=== PATIENT | female | born 1930 | race Caucasian/White ===

== ENCOUNTER 2016-12-07 11:54 | Inpatient (IN) | payer OTHER ==
[~2016-12-07] VITALS: Ht 162.6 cm; Wt 71.6 kg
[2016-12-07] MEDS ORDERED: LOVA10TA PO (12:20)
[2016-12-07] MEDS ORDERED: SODIUM CHLORIDE FLUSH 10ML SYR IVF ONE (13:00)
[2016-12-07 13:01] LABS: HEMOGLOBIN 13.3 g/dL (11.7-16.4); WHITE BLOOD COUNT 6.8 x10^3/uL (3.4-10)
[2016-12-07 13:14] LABS: ASPARTATE AMINO TRANSFERASE 15 U/L (15-37); BLOOD UREA NITROGEN 8 mg/dL (7-18)
[2016-12-07 13:19] LABS: IS PT STATUS REG ER OR PRE ER? YES
[2016-12-07] MEDS: SODIUM CHLORIDE 0.9% 1,000 ML IV SCH (14:00)
[2016-12-07] MEDS ORDERED: CEFTRIAXONE PMX 1GM/50ML 50 ML IV ONE (14:30)
[2016-12-07] MEDS ORDERED: MECLIZINE 12.5 MG TABLET PO PRN (15:00)
[2016-12-07] MEDS ORDERED: POLYETHYLENE GLYCOL 17 GM PACKET PO PRN (15:00)
[2016-12-07] MEDS ORDERED: DOCUSATE 100 MG CAPSULE PO PRN (15:00)
[2016-12-07] MEDS ORDERED: CEFTRIAXONE PMX 1GM/50ML 50 ML IV SCH (15:00)
[2016-12-07] MEDS ORDERED: ENALAPRILAT 1.25 MG/ML, 2ML IVPush PRN (15:00)
[2016-12-07] MEDS ORDERED: BISACODYL 10 MG SUPP PR PRN (15:00)
[2016-12-07 16:11] VITALS: BP 172/74
[2016-12-07] MEDS: CEFTRIAXONE PMX 1GM/50ML 50 ML IV SCH (16:37)
[2016-12-07] MEDS: ENOXAPARIN 40 MG/0.4 ML SQ SCH (16:38)
[2016-12-07 21:16] VITALS: BP 161/76
[2016-12-07] MEDS: SIMVASTATIN 5 MG TABLET PO SCH (21:21)
[2016-12-08 01:27] VITALS: BP 108/63
[2016-12-08 05:13] LABS: HEMATOCRIT 37.7 % (34.6-47.8); HEMOGLOBIN 12.2 g/dL (11.7-16.4); WHITE BLOOD COUNT 6.7 x10^3/uL (3.4-10)
[2016-12-08 05:47] LABS: ASPARTATE AMINO TRANSFERASE 11 U/L (15-37); BLOOD UREA NITROGEN 12 mg/dL (7-18)
[2016-12-08 07:37] VITALS: BP 150/78
[2016-12-08] MEDS: SODIUM CHLORIDE 0.9% 1,000 ML IV SCH ×2 (09:12→18:00)
[2016-12-08 14:50] VITALS: BP 165/87
[2016-12-08] MEDS: ENOXAPARIN 40 MG/0.4 ML SQ SCH (17:00)
[2016-12-08] MEDS: CEFTRIAXONE PMX 1GM/50ML 50 ML IV SCH (17:00)
[2016-12-08 19:50] VITALS: BP 151/99
[2016-12-08] MEDS: SIMVASTATIN 5 MG TABLET PO SCH (20:05)
[2016-12-09 01:41] VITALS: BP 147/71
[2016-12-09] MEDS: SODIUM CHLORIDE 0.9% 1,000 ML IV SCH (03:31)
[2016-12-09 08:15] VITALS: BP_SYST 148; BP_SYST 155; BP_SYST 162; BP_DIAS 74; BP_DIAS 83
[2016-12-09] MEDS ORDERED: CEFTRIAXONE PMX 1GM/50ML 50 ML IV ONE (13:45)
== END 2016-12-09 14:56 | disposition home or self-care (01) | DRG 690 ==
LOC: ED 14:06 → EDIP 14:07 → ED 14:23 → 5SO 15:53
PROVIDERS: ADMIT Internal Medicine; ATTEND Internal Medicine
DX: N39.0 Urinary tract infection, site not specified (principal); R00.1 Bradycardia, unspecified; I10 Essential (primary) hypertension; E78.5 Hyperlipidemia, unspecified; H40.9 Unspecified glaucoma; Z82.3 Family history of stroke; Z87.891 Personal history of nicotine dependence; Z90.49 Acquired absence of other specified parts of digestive tract
CPT/HCPCS: 36415; 70450; 70551; 71010; 80053; 81001; 83735; 83880; 84436; 84443; 84484; 85025; 85610; 85730; 87086; 93005; 93306; 99285; J0696; J1650; J7030

== ENCOUNTER 2017-08-05 09:13 | Emergency (ER) | payer OTHER ==
[~2017-08-05] VITALS: Ht 162.6 cm; Wt 71.6 kg
[~2017-08-05 09:13] MED LIST: LOVA10TA PO
[2017-08-05 09:14] VITALS: BP 174/84
[2017-08-05] MEDS ORDERED: [UNRECOGNIZED DRUG - REMARK] EACHEYE (09:53)
[2017-08-05] MEDS ORDERED: BUPIVACAINE 0.25% ONE (11:50)
== END 2017-08-05 12:10 | disposition home or self-care (01) ==
LOC: ED 12:04
DX: S76.012A Strain of muscle, fascia and tendon of left hip, initial encounter (principal); X58.XXXA Exposure to other specified factors, initial encounter; Y93.89 Activity, other specified; Y92.89 Other specified places as the place of occurrence of the external cause; Y99.8 Other external cause status
CPT/HCPCS: 99284